=== PATIENT | female | born 1965 ===

== ENCOUNTER 2023-08-31 22:08 | Inpatient (IN) | payer OTHER, SELFPAY ==
[2023-08-31 16:06] VITALS: BP 184/119
[2023-08-31] MEDS: DILAUDID 0.5 MG IV ×2 (17:21→19:27)
[2023-08-31] MEDS: ZOFRAN 4 MG IV ×3 (17:22→20:41)
[2023-08-31 17:30] VITALS: BMI 35.8
[2023-08-31 17:37] LABS: % Basophils 0.4 % (0-2); % Eosinophils 0.3 % (0-6); % Immature Granulocytes 0.5 % (0-0.5); % Lymphocytes 7.8 % (20.5-51.1); % Monocytes 6.1 % (1.7-9.3); % Neutrophils 84.9 % (42.2-75.2); Absolute Basophils 0.1 10^3/uL (0-0.2); Absolute Eosinophils 0.1 10^3/uL (0-0.7); Absolute Immature Granulocytes 0.1 10^3/uL (0-0.05); Absolute Lymphocytes 1.3 10^3/uL (1.2-3.4); Absolute Neutrophils 14.4 10^3/uL (1.4-6.5); Hematocrit 44.1 % (37.0-47.0); Hemoglobin 15.2 g/dL (12.0-16.0); Mean Corp Hgb Conc. 34.5 g/dL (33.0-37.0); Mean Corpuscular Hgb 28.5 pg (27.0-31.0); Mean Corpuscular Volume 82.6 fL (81.0-99.0); Mean Platelet Volume 9.5 fL (7.4-10.4); Nucleated Red Blood Cells % 0 %; Platelet Count 214 10^3/uL (130-400); Red Blood Cell Count 5.34 10^6/uL (4.20-5.40); Red Cell Dist. Width 12.8 % (11.5-14.5)
[2023-08-31 17:40] VITALS: BP 169/80
--- NOTE | 2023-08-31 17:48 | EDRN ---
Lab called and COMP was hemolyzed and will need to be redrawn.
--- NOTE | 2023-08-31 18:12 | EDRN ---
ED PCT Agnes redrew SST tube that was hemolyzed at this time.
--- NOTE | 2023-08-31 18:15 | ED.GENMED ---
History of Present Illness
General
Chief Complaint: Jaw Pain
Source: patient and family (sister)
Time Seen by Provider: 08/31/23 16:52
Nursing documentation reviewed up to this point in time: agreed with
Travel History
Have you had any contact with someone who has COVID-19?: No
Do you have any symptoms of coronavirus? Fever > 100 degrees, chills, cough, shortness of breath, sore throat, loss of taste or smell, muscle aches, or headache?: No
History of Present Illness
History of Present Illness:
The patient is a very pleasant 58-year-old female who presents with severe swelling and pain in her left face, primarily in the area in the front of her left ear and radiating down the left side of her neck. Patient reports that the pain started
about 36 hours ago after opening her mouth and feeling a crack along her left jawline. Patient reports it is extremely painful for her to open up her mouth. She reports her throat is sore along the left side. Her sister reports she has had chills
and a low-grade fever. Patient was evaluated urgent care earlier today and was started on Augmentin. She has taken 1 dose of the antibiotic. She denies any recent dental procedures.
Past History
Past History
ED Past Medical History: HTN
ED Past Surgical History: Other
Social History
Tobacco: Non-smoker
Alcohol: Other
Drug: None
Personal: Other
Living: with family
Employment: Other
Family History
Family History: Other
Review of Systems
Review of Systems
Allergies reviewed?: Yes
All Other Systems: ROS reviewed and negative except as documented in HPI and ROS
Constitutional: Reports fever and chills
EENT: Reports sore throat and other
Respiratory: Reports no symptoms
Cardiac: Reports no symptoms
ABD/GI: Reports no symptoms
: Reports no symptoms
Musculoskeletal: Reports no symptoms
Skin: Reports no symptoms
Neurological: Reports no symptoms
Endocrine: Reports no symptoms
Hematologic/Lymphatic: Reports no symptoms
Psychiatric: Reports no symptoms
Phy Exam
Physical Exam
Physical Exam:
Physical Exam
General: Patient appears very uncomfortable
Neck: Marked swelling and erythema and tenderness of parotid gland area of left face with streaking redness and swelling down left lateral neck
Heart: s1/s2 regular rate and rhythm, no murmur. equal radial pulses.
Lungs: no acute respiratory distress. clear bilaterally
Abdomen: normal bowel sounds. not tender. no CVAT
Neuro: alert and oriented. no focal neurological deficits
Skin: no rash
Psychiatric: well kept. interactive and cooperative
Extremities: no edema. no calf tenderness. negative homans. good distal pulses
Course
Orders/Labs/Results
Orders:
Orders
08/31/23 17:12
HYDROmorphone [Dilaudid] 0.5 mg IV NOW STA
08/31/23 17:13
Ondansetron Injectable [Zofran] 4 mg IV NOW STA
08/31/23 17:14
CT Neck With Iv Contrast Urgent
Comment:
Reason For Exam: L neck and gland pain
08/31/23 17:28
Complete Blood Count/With Diff Urgent
08/31/23 18:08
Comprehensive Metabolic Panel Urgent
08/31/23 19:16
HYDROmorphone [Dilaudid] 0.5 mg IV NOW STA
08/31/23 19:28
Ondansetron Injectable [Zofran] 4 mg IV NOW STA
08/31/23 20:23
Clindamycin Phosphate [Cleocin] 450 mg 0.9% Sodium Chloride [Nss] 50 ml IV NOW
Abnormal Lab Results
08/31/23 08/31/23
17:28 18:08
WBC 17.0 H 10^3/uL
(4.8-10.8)
Abs Immat Gran (auto) 0.1 H 10^3/uL
(0-0.05)
Absolute Neuts (auto) 14.4 H 10^3/uL
(1.4-6.5)
Absolute Monos (auto) 1.0 H 10^3/uL
(0.1-0.6)
Neutrophils % 84.9 H %
(42.2-75.2)
Lymphocytes % 7.8 L %
(20.5-51.1)
Sodium 133 L mmol/L
(135-145)
Chloride 97 L mmol/L
(98-107)
Glucose 117 H mg/dl
(70-99)
08/31/23 17:28
08/31/23 18:08
Vital Signs
Initial and Last Documented VS:
Initial Vital Signs
Temp Pulse Resp BP Pulse Ox
98.8 F 92 16 184/119 97
08/31/23 16:06 08/31/23 16:06 08/31/23 16:06 08/31/23 16:06 08/31/23 16:06
Last Documented Vital Signs
Temp Pulse Resp BP Pulse Ox
99.1 F 96 18 173/73 96
08/31/23 19:35 08/31/23 18:32 08/31/23 18:32 08/31/23 18:32 08/31/23 18:32
MDM/Problems Addressed
Differential Diagnosis Includes:
Peritonsillar abscess, mastoiditis, abscess soft tissue neck
MDM/Problems Addressed:
Patient presents with acute swelling and pain along the left face and neck area
Acute Exacerbation and/or Progression of Chronic Illness:
Patient is acutely hypertensive, likely due to severe pain
Acute Exacerbation and/or Progression of Chronic Illness: HTN
*Radiology
Radiology exam reviewed: radiology read reviewed
*Pulse Oximetry
Patient hypoxic: no
*EKG
Interpreted by ED Provider?: NA
*Hostler Helper Interpretation
Rate: Hostler Helper- N/A
*Critical Care Note
Total Time (30-74mins, 75-104mins- exclusive of procedures): Not Applicable
ED Attending Note
-
Portions of this chart may have been created with voice recognition software.� Occasional wrong word or��sound alike� substitutions may have occurred due to the inherent limitations of voice recognition software.
Discharge Plan
Departure
Patient Disposition: Admit
Date of Disposition: 08/31/23
Time of Disposition: 20:19
Admit to: Med/Surg
Presentation/result/management discussed w/ accepting MD/DO: Hospitalist
Patient with high blood pressure during this ER visit?: Yes
Condition: Good
Covid-19: Not Applicable
Discharge Problem:
Cellulitis of face, Acute parotitis
Referrals:
Betzaida Howell MD [Family Provider] -
Interventions
Interventions:
*Risk Screen - Suicide Last Done: 08/31/23 16:06
*General Assessment Last Done: 08/31/23 16:06
*Neglect/Abuse Screening Last Done: 08/31/23 16:06
ED- Fall Risk Assessment Last Done: 08/31/23 17:30
*ED COVID-19 Vaccine History Last Done: 08/31/23 17:30
ED- Cardiac Assessment Last Done: 08/31/23 17:30
ED-EENT Assessment Last Done: 08/31/23 17:30
Discharge Date and Time
Print Language: VIETNAMESE
[2023-08-31 18:32] VITALS: BP 173/73
[2023-08-31 18:34] LABS: ALT (SGPT) 19 U/L (0-35); AST (SGOT) 26 U/L (14-36); Albumin 4.5 g/dl (3.5-5.0); Alkaline Phosphatase 67 U/L (38-126); Blood Urea Nitrogen 15 mg/dl (7-17); Calcium 9.7 mg/dl (8.4-10.2); Carbon Dioxide 30 mmol/L (22-30); Chloride 97 mmol/L (98-107); Estimated Creatinine Clearance 118 ml/min; Glucose 117 mg/dl (70-99); Potassium 4.1 mmol/L (3.5-5.1); Sodium 133 mmol/L (135-145); Total Bilirubin 1.3 mg/dl (0.2-1.3); Total Protein 7.4 g/dl (6.3-8.2); eGFR > 60.00
--- NOTE | 2023-08-31 20:38 | HPS.HSE ---
Family Physician
-
Family Physician: Betzaida Howell
Chief Complaint
-
Left-sided facial swelling, chills
History of Present Illness
58-year-old female complaining of pain to left preauricular face that started 36 hours ago then started to swell and expand into her left anterior neck.. She also had chills with a temp of 100.5 today at 3 PM. She does report she uses a nightguard
for TMJ pain. She was evaluated at urgent care earlier today started on Augmentin of which she has taken 1 dose in addition to naproxen and her metoprolol 25 mg ER. She has past medical history of hypertension, TMJ pain
Medical History
Past Medical History
Past Medical History: Reports HTN and Other (TMJ pain wears nightguard)
Past Surgical History: Reports Tonsilectomy
Social History
Tobacco: Non-smoker
Alcohol: Occasional
Drug: None
Personal: Single
Living: With Family (With jessica Alonzo)
Employment: Retired
Family History
Family History: Other (Mother liver failure, history celiac disease, father CHF)
Allergies / Home Medications
Allergies reflects when Allergies were last updated in [email or web address].
Home Medications with original date entered in [email or web address]
Allergy/Medication List:
Allergies
Allergy/AdvReac Type Severity Reaction Status Date / Time
No Known Allergies Allergy Unverified 08/31/23 18:35
Home Medications
amoxicillin 875 mg-potassium clavulanate 125 mg tablet 1 tab PO BID 08/31/23
metoprolol succinate 25 mg tablet,extended release 24 hr 25 mg PO DAILY 08/31/23
naproxen 500 mg tablet 500 mg PO BID 08/31/23
Review of Systems
-
History Source: Patient and Family (Sister lazarus )
A 12 point ROS was completed and negative except as noted: Yes
Constitutional: Reports Fever and Chills
EENT: Reports Other (Left parotid swelling extending to mandible and left anterior neck, trismus); Denies Sore Throat or Runny Nose
Respiratory: Denies Cough or Trouble Breathing
Cardiac: Denies Chest Pain, Diaphoresis, Palpitations or Syncope
Abdomen/GI: Denies Abdominal Pain, Nausea, Vomiting, Diarrhea, Constipated or Bloody Stools
: Denies Dysuria, Frequency, Flank Pain, Incontinence, Difficulty Voiding or Urgency
Musculoskeletal: Denies Joint Pain or Edema
Skin: Reports Other (Flushed face and upper neck); Denies Itching or Rash
Neurological: Denies Dizzy, Headache or Weakness
Endocrine: Reports No Symptoms
Hematologic/Lymphatic: Reports No Symptoms
Psych: Reports Calm
Physical Exam
Vital Signs
Vital Signs
Temp Pulse Resp BP Pulse Ox
99.1 F 96 18 173/73 96
08/31/23 19:35 08/31/23 18:32 08/31/23 18:32 08/31/23 18:32 08/31/23 18:32
Physical Exam
General: Pain, Fever, Chills and Obese
HEENT: NormoCephalic, Anicteric, Moist mucous membranes, PERRLA, Stuckey Conjunctivae, No Ptosis and Other (Left parotid swelling extending to mandible and left anterior neck, trismus is able to open mouth slightly, moist mucous membranes, no dental
decay no tooth breakdown)
Respiratory: Clear; No Wheezes, Rales or Rhonchi
Cardiac: S1/S2 and Regular Rhythm; No Murmur, Rub, Gallop or Peripheral Edema
Breast: Deferred by me
GI: Soft, Non Tender, Non Distended, Normal Bowel Sounds and No Hepatosplenomegaly
Rectal: Deferred by Provider
Genito-urinary: Deferred by me
Musculoskeletal: No Clubbing, No Cyanosis and No Edema
Skin: Warm and Dry; No Rash or Jaundice
Neuro: AO x 3, No Motor Deficits, Nonfocal/grossly intact, Cranial Nerves Intact and No Sensory Deficits; No Slurred Speech, Facial Droop or Tremors
Psych: Calm
Laboratory Results
-
08/31/23 17:28
08/31/23 18:08
Laboratory Results
Total Bilirubin 1.3 mg/dl (0.2-1.3) 08/31/23 18:08
AST 26 U/L (14-36) 08/31/23 18:08
ALT 19 U/L (0-35) 08/31/23 18:08
Alkaline Phosphatase 67 U/L (38-126) 08/31/23 18:08
Impression/Plan
-
Impression/plan:
Admit to MedSurg
#Sepsis secondary to left facial Parotitis
#Hx Nightguard use
WBC 17 with left shift, HR 96, 99.1 F, reports vaccinated against mmr last titer 2 years ago
Patient took 1 dose of [id number]
-Blood cultures x 2
-IV NSS
-ice
-IV Unasyn 3gm q6h
-Tylenol as needed fever, IV Dilaudid, IV Zofran as needed
CT neck with IV contrast: Left-sided parotitis.. No abscess formation
Moderate bilateral cervical lymphadenopathy left greater than right
#HTN�benign
173/73
- cont metoprolol 25 mg xr
#Obesity due to excess calorie consumption�BMI 35.8 kg
Weight loss recommended when able to resume eating
DVT prophylaxis
SCDs
Full code
[2023-08-31] MEDS: DILAUDID 1 MG IV ×2 (20:42→23:41)
--- NOTE | 2023-08-31 21:25 | W.PN.UPDATE ---
Update Note
Progress Note Update
This is an addendum to the H&P written by ABEBA Soni on 08/31/2023.
Patient seen and examined apparently with RADIOLOGICAL TECHNICIAN.� 58-year-old female with past medical history of hypertension, obesity, TMJ presenting with left preauricular swelling and pain that started 36 hours ago and expanding.� She had chills and fever today.�
Denies any discharge from the mouth.� Denies any history of dental problems, or rash.� She does wear nightguard for TMJ.� CT scan of the neck shows left-sided parotitis without evidence of abscess.� Sepsis secondary to parotitis likely due to dry
mouth.� Check blood cultures, IV fluids, Unasyn.
[2023-08-31] MEDS: UNASYN IV (21:53)
[2023-08-31 22:04] VITALS: BP 138/66
[2023-08-31] MEDS: NSS 1000 IV (23:45)
[2023-08-31 23:47] VITALS: BP 136/63
[2023-08-31 23:48] VITALS: BP 136/63
[2023-09-01] VITALS (9 sets, daily range): BP systolic 131–155; BP diastolic 73–86
[2023-09-01] MEDS: DILAUDID 1 MG IV ×3 (03:13→09:17)
[2023-09-01] MEDS: UNASYN IV ×4 (04:48→21:39)
[2023-09-01 06:38] LABS: % Basophils 0.3 % (0-2); % Eosinophils 0.2 % (0-6); % Immature Granulocytes 0.6 % (0-0.5); % Lymphocytes 11.5 % (20.5-51.1); % Monocytes 8.3 % (1.7-9.3); % Neutrophils 79.1 % (42.2-75.2); Absolute Basophils 0.1 10^3/uL (0-0.2); Absolute Immature Granulocytes 0.1 10^3/uL (0-0.05); Absolute Monocytes 1.5 10^3/uL (0.1-0.6); Hematocrit 41.2 % (37.0-47.0); Hemoglobin 14.1 g/dL (12.0-16.0); Mean Corp Hgb Conc. 34.2 g/dL (33.0-37.0); Mean Corpuscular Hgb 28.9 pg (27.0-31.0); Mean Corpuscular Volume 84.4 fL (81.0-99.0); Mean Platelet Volume 9.6 fL (7.4-10.4); Nucleated Red Blood Cells % 0 %; Platelet Count 181 10^3/uL (130-400); Red Blood Cell Count 4.88 10^6/uL (4.20-5.40); Red Cell Dist. Width 12.8 % (11.5-14.5); White Blood Cell Count 17.7 10^3/uL (4.8-10.8)
[2023-09-01 06:56] LABS: ALT (SGPT) 17 U/L (0-35); AST (SGOT) 20 U/L (14-36); Alkaline Phosphatase 68 U/L (38-126); Blood Urea Nitrogen 11 mg/dl (7-17); Calcium 9.3 mg/dl (8.4-10.2); Carbon Dioxide 28 mmol/L (22-30); Chloride 103 mmol/L (98-107); Estimated Creatinine Clearance > 125 ml/min; Glucose 118 mg/dl (70-99); Potassium 3.9 mmol/L (3.5-5.1); Sodium 136 mmol/L (135-145); Total Bilirubin 1.2 mg/dl (0.2-1.3); Total Protein 6.8 g/dl (6.3-8.2); eGFR > 60.00
[2023-09-01] MEDS: TYLENOL 650 MG PO ×3 (08:43→20:14)
[2023-09-01] MEDS: TOPROL XL 25 MG PO (08:44)
[2023-09-01] MEDS: DECADRON 10 MG IV (09:10)
--- NOTE | 2023-09-01 11:42 | PTOTSP ---
Pt is indep in room for ADLs/functional mobility. No skilled OT services warranted. Will sign off.
[2023-09-01] MEDS: NSS 1000 IV ×2 (11:59→21:39)
--- NOTE | 2023-09-01 13:10 | W.PN.HOSP.TC ---
Today's Communication/Plan
-
All discussed with the patient
Discussed with the nurse
Assessment / Plan
Assessment / Plan
Physical exam:
General: Awake, alert and oriented x3, not in distress and holds appropriate conversation.
HEENT: Left-sided facial swelling and tenderness some redness preauricular region, and mild swelling in the left side of the neck with no airway compromise or respiratory distress, no active discharge, ecchymosis or bruising, moist lips, tongue and
mucous membrane.
Eyes: No discharge or red conjunctiva, no nystagmus, pupils are reactive and equal
Neck:Supple, no JVD no bruit no goiter.
Respiratory: Normal AP contour and diameter, normal chest wall movement, normal respiratory effort, no respiratory distress,
Lungs: Good air entry bilaterally, no wheezing or rhonchi, no rales or crackles
Heart: S1, S2 regular, normal rate, no added sound.
Gastrointestinal: Positive bowel sounds, soft, nontender, no guarding or rigidity or organomegaly
Musculoskeletal: , no chest wall abnormality or tenderness. All joints and extremities have good range of motion, no muscle tenderness or any joint swelling or tenderness.
Extremities: No pitting edema, good peripheral pulses, good range of motion
Skin: Warm and dry, no ulceration, normal color.
Neurological: Awake, alert and oriented x3, no facial droop, normal mentation, moves extremities
Psychiatric: Normal mood, normal thought and judgment, normal affect,
Assessment and plan:
#Sepsis secondary to left facial Parotitis
#Hx Nightguard use and a dry mouth
WBC 17 with left shift, HR 96, 99.1 F, reports vaccinated against mmr last titer 2 years ago
Patient took 1 dose of Augmentin 875 mg
-Blood cultures x 2, results still pending
-IV NSS
-ice pack
-IV Unasyn 3gm q6h
-Tylenol as needed fever, IV Dilaudid, IV Zofran as needed
-Since swelling little worse according to the patient Decadron 10 mg right now then 60 mg every 6 hour and reassess accordingly.
Close monitoring of the airway and vital sign.
CT neck with IV contrast: Left-sided parotitis.. No abscess formation
Moderate bilateral cervical lymphadenopathy left greater than right
#HTN�benign
Pressure initially was high normal at 150s over 80s.
Continue to monitor
- cont metoprolol 25 mg xr
#Obesity due to excess calorie consumption�BMI 35.8 kg
Weight loss recommended when able to resume eating
DVT prophylaxis
Add Lovenox subcu
Full code
Anticipated Discharge: > 48 hours
Subjective/Interval History
-
Date of Service: September 01, 2023
General exam area, awake, alert oriented x 3, complaining of moderately severe pain in the left side of the face with swelling and swelling of the left side of the face is worse and now trending down to 10 neck, she felt her throat swelling about
breathing is normal and maintaining normal saturation on room air not look in distress. Afebrile. No nausea or vomiting or any fever or chills or any weakness or numbness in extremities.
CT face showed left parotitis.
Objective Data
-
Labs:
Laboratory Results
09/01/23
06:07
WBC 17.7 H
Hgb 14.1
Hct 41.2
Plt Count 181
Sodium 136
Potassium 3.9
Chloride 103
Carbon Dioxide 28
BUN 11
Creatinine 0.6
Glucose 118 H
Calcium 9.3
Total Bilirubin 1.2
AST 20
ALT 17
Alkaline Phosphatase 68
Vital Signs:
Vital Signs
Temp Pulse Resp BP Pulse Ox
98.2 F 79 15 154/82 96
09/01/23 08:39 09/01/23 08:39 09/01/23 08:39 09/01/23 08:39 09/01/23 08:39
I&O
08/31/23 09/01/23 09/02/23
07:59 07:59 07:59
Intake Total 520 / 520
Balance 520 / 520
Review of Systems
-
All other systems: Reviewed and negative
[2023-09-01] MEDS: DECADRON 6 MG IV ×2 (15:25→21:39)
[2023-09-01] MEDS: LOVENOX 40 MG SC (17:45)
[2023-09-02] MEDS: UNASYN IV ×4 (03:40→21:00)
[2023-09-02] MEDS: DECADRON 6 MG IV ×4 (03:40→20:59)
[2023-09-02 06:10] LABS: % Basophils 0.2 % (0-2); % Immature Granulocytes 1.1 % (0-0.5); % Lymphocytes 5.4 % (20.5-51.1); % Monocytes 2.7 % (1.7-9.3); % Neutrophils 90.6 % (42.2-75.2); Absolute Immature Granulocytes 0.2 10^3/uL (0-0.05); Absolute Monocytes 0.5 10^3/uL (0.1-0.6); Absolute Neutrophils 16.9 10^3/uL (1.4-6.5); Hematocrit 40.2 % (37.0-47.0); Hemoglobin 13.3 g/dL (12.0-16.0); Mean Corp Hgb Conc. 33.1 g/dL (33.0-37.0); Mean Corpuscular Hgb 28.2 pg (27.0-31.0); Mean Corpuscular Volume 85.4 fL (81.0-99.0); Mean Platelet Volume 10.2 fL (7.4-10.4); Nucleated Red Blood Cells % 0 %; Platelet Count 193 10^3/uL (130-400); Red Blood Cell Count 4.71 10^6/uL (4.20-5.40); Red Cell Dist. Width 12.4 % (11.5-14.5); White Blood Cell Count 18.7 10^3/uL (4.8-10.8)
[2023-09-02] MEDS: NSS 1000 IV (08:21)
[2023-09-02 08:26] VITALS: BP 143/75
[2023-09-02] MEDS: TOPROL XL 25 MG PO (08:28)
[2023-09-02 08:33] VITALS: BMI 36.6
--- NOTE | 2023-09-02 11:16 | CM ---
CM met with patient and sister in room. Patient confirmed demographics. Patient lives independently with sister. No history of VN, SNF or DME. Patient is active with her PCP. Patient uses [facility] for medication services.
PLAN: Home no needs.
--- NOTE | 2023-09-02 11:55 | W.PN.HOSP.TC ---
Today's Communication/Plan
-
All discussed with the patient in detail
Assessment / Plan
Assessment / Plan
Physical exam:
General: Awake, alert and oriented x3, not in distress and holds appropriate conversation.
HEENT: Left-sided facial swelling and tenderness some redness preauricular region, and mild swelling in the left side of the neck with no airway compromise or respiratory distress, no active discharge, ecchymosis or bruising, moist lips, tongue and
mucous membrane.
Eyes: No discharge or red conjunctiva, no nystagmus, pupils are reactive and equal
Neck:tender swelling of L side of neck, better than yesterday, Supple, no JVD no bruit no goiter.
Respiratory: Normal AP contour and diameter, normal chest wall movement, normal respiratory effort, no respiratory distress,
Lungs: Good air entry bilaterally, no wheezing or rhonchi, no rales or crackles
Heart: S1, S2 regular, normal rate, no added sound.
Gastrointestinal: Positive bowel sounds, soft, nontender, no guarding or rigidity or organomegaly
Musculoskeletal: , no chest wall abnormality or tenderness. All joints and extremities have good range of motion, no muscle tenderness or any joint swelling or tenderness.
Extremities: No pitting edema, good peripheral pulses, good range of motion
Skin: Warm and dry, no ulceration, normal color.
Assessment and plan:
#Sepsis secondary to left facial Parotitis, improving,
#Hx Nightguard use and a dry mouth
WBC little higher likely secondary to infection and steroid, with left shift, HR 96, 99.1 F, reports vaccinated against mmr last titer 2 years ago
Patient took 1 dose of Augmentin 875 mg
-Blood cultures x 2, results still pending
-IV NSS
-ice pack
-IV Unasyn 3gm q6h
-Tylenol as needed fever, IV Dilaudid, IV Zofran as needed
-Since swelling little worse according to the patient Decadron 10 mg right now then 60 mg every 6 hour and reassess accordingly.
-Close monitoring of the airway and vital sign.
Is not ready for discharge still of moderate amount of the painful erythematous swelling of the left side of the face and neck require more IV antibiotic and steroid
CT neck with IV contrast: Left-sided parotitis.. No abscess formation
Moderate bilateral cervical lymphadenopathy left greater than right
#HTN�benign
Pressure initially was high normal at 150s over 80s.
Continue to monitor
- cont metoprolol 25 mg xr
#Obesity due to excess calorie consumption�BMI 35.8 kg
Weight loss recommended when able to resume eating
DVT prophylaxis
Add Lovenox subcu
Full code
Anticipated Discharge: 24 - 48 hours
Subjective/Interval History
-
Date of Service: September 02, 2023
Seen and examined, awake and alert, still of moderate painful erythematous swelling of the left side face on the neck but better than before, better opening of her mouth, tolerating liquid diet, no fever or chills or nausea or vomiting. No
headache. No facial ulceration,
Objective Data
-
Labs:
Laboratory Results
09/02/23
05:43
WBC 18.7 H
Hgb 13.3
Hct 40.2
Plt Count 193
Vital Signs:
Vital Signs
Temp Pulse Resp BP Pulse Ox
98.2 F 78 18 143/75 93
09/01/23 22:46 09/02/23 08:28 09/02/23 08:26 09/02/23 08:28 09/02/23 08:26
I&O
09/01/23 09/02/23 09/03/23
07:59 07:59 07:59
Intake Total 520 / 520 1700 / 1700
Output Total 3 / 3
Balance 520 / 520 1697 / 1697
Review of Systems
-
All other systems: Reviewed and negative
[2023-09-02 16:38] VITALS: BP 174/92
[2023-09-02 16:54] VITALS: BP 169/87
--- NOTE | 2023-09-02 17:00 | PTCARENOTE ---
Received pt from ED.Pt awake, alert and oriented x3. Pt has no c/o pain at this time. Left facial swelling with lump noted. Cheeks flushed with redness extending down neck to chest with warmth noted. Pt said it has significantly improved since
admission. Pt pox stable 97% on RA. No c/o of SOB. Pt oriented to room, call montoya within reach, plan of care ongoing.
[2023-09-02] MEDS: LOVENOX 40 MG SC (17:36)
[2023-09-02 18:20] VITALS: BP 171/90
[2023-09-02] MEDS: TYLENOL 650 MG PO (18:43)
[2023-09-02] MEDS: APRESOLINE 10 MG IV (18:43)
--- NOTE | 2023-09-02 19:15 | PTCARENOTE ---
Pt b/p elevated 170s systolic with c/o headache. Spoke with MD orders for IV Hydralazine, given per orders, Pt also given Tylenol for headache. after about a half hour pt already said she is feeling better. Call montoya within reach, plan of care
ongoing.
[2023-09-02 23:00] VITALS: BP 151/85
[2023-09-03] MEDS: DECADRON 6 MG IV ×2 (03:10→09:10)
[2023-09-03] MEDS: UNASYN IV ×2 (03:11→09:26)
[2023-09-03 08:00] VITALS: BP 161/90
[2023-09-03] MEDS: TOPROL XL 25 MG PO (09:09)
[2023-09-03 11:30] VITALS: BP 165/85
--- NOTE | 2023-09-03 14:08 | CM ---
Patient seen bedside, inquiring if she is being discharged today, patient would really like to discharge home. TT sent to Hospitalist. CM will continue to follow for discharge planning needs.
Plan; home no needs.
--- NOTE | 2023-09-03 14:55 | W.PN.HOSP.TC ---
Addendum entered and electronically signed by Bari Prieto MD 09/03/23 15:04:
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
Original Note:
Today's Communication/Plan
-
DC
Assessment / Plan
Assessment / Plan
Assessment and plan:
#Sepsis secondary to left facial Parotitis-nonsuppurative
#Hx Nightguard use and a dry mouth
- improving,
WBC little higher likely secondary steroid than infection with significant improvement in pain and swelling. Afebrile.
-Blood cultures x 2 neg
-on IV Unasyn 3gm q6h
-No further oral steroids.
-Changed to oral Augmentin to continue for another week. Patient educated about signs of recurrence of infection-recurrence of pain, swelling or fevers in which case advised to come back to the ER.
#HTN�benign
Pressure on higher side but greatly controlled per pt at home
- cont metoprolol 25 mg xr; advised to check at home off of steroids
#Obesity due to excess calorie consumption�BMI 35.8 kg
Weight loss recommended when able to resume eating
DVT prophylaxis
Add Lovenox subcu
Full code
Medically stable for discharge.
Anticipated Discharge: Today
Subjective/Interval History
-
Date of Service: September 03, 2023
Much improved swelling in the left angle of the neck. The swelling was not all in the parotid gland area it was In the back of the ear and as well as lower neck and all is improving.
Pain is significantly improved and not requiring any IV medication.
No fever or chills.
No parotid gland issues in the past.
Good dental hygiene.
Had some issues with dry mouth but never issue.
She wears mouthguard in the night every day. She had it refitted. It keeps hitting in the back of the jaw and sometimes gives her jaw pain.
Objective Data
-
Vital Signs:
Vital Signs
Temp Pulse Resp BP Pulse Ox
98.6 F 68 18 165/85 96
09/03/23 11:30 09/03/23 11:30 09/03/23 11:30 09/03/23 11:30 09/03/23 11:30
I&O
09/02/23 09/03/23 09/04/23
06:59 06:59 06:59
Intake Total 3619 / 0
Output Total
Balance - / -3 3619
Review of Systems
-
Constitutional: Denies Fever or Chills
Respiratory: Denies Trouble Breathing
Cardiac: Denies Chest Pain
Abdomen/GI: Denies Diarrhea
Musculoskeletal: Denies Joint Pain
Neuro: Denies Dizzy
Physical Exam
-
General: No Apparent Distress
HEENT: Moist Mucous Membranes and Other (Left parotid gland prominent noted -not particularly tender today;stensen duct area palpated and no stone or pain elicited.)
Respiratory: Clear to Auscultation
Cardiac: Regular Rhythm and S1/S2
GI: Soft
Neuro: AO x 3
Psych: Calm
--- NOTE | 2023-09-03 15:03 | W.DS.TRANS ---
DC Summary - Granulator Tender
-
Discharge Instructions:
Discharge Diagnosis/Procedures Left parotitis concerned sec to scientific specialist
Diet Regular
Activity As tolerated
Driving Restrictions As prior to admission
Bathing Restrictions None
Instructions:
Stand-Alone Forms:
Changes to Home Medications: No
Discharge Medications:
DC Medications w/original date entered in [email or web address]
metoprolol succinate 25 mg tablet,extended release 24 hr 25 mg PO DAILY 08/31/23
naproxen 500 mg tablet 500 mg PO BID 08/31/23
acetaminophen 325 mg tablet 650 mg (2 x 325 mg) PO Q4HPRN PRN mild pain/PIERCE/temp> 100.4F #1 tab 09/03/23
amoxicillin 875 mg-potassium clavulanate 125 mg tablet 1 tab PO BID #0 tabs 09/03/23
Home Medication Changes
Pending Results: No
[2023-09-03 15:05] VITALS: BP 158/78
== END 2023-09-03 17:12 | disposition home or self-care (01) | DRG 872 ==
LOC: 4 EAST ACU 22:08
PROVIDERS: Clinical Nurse Specialist Family Health; Internal Medicine; ADMITTING PHYSICIAN Hospitalist; ATTENDING PHYSICIAN Internal Medicine; EMERGENCY PHYSICIAN Emergency Medicine; FAMILY PHYSICIAN Family Medicine
DX: A41.9 Sepsis, unspecified organism (principal); L03.211 Cellulitis of face; I10 Essential (primary) hypertension; K11.21 Acute sialoadenitis; M26.629 Arthralgia of temporomandibular joint, unspecified side; R59.0 Localized enlarged lymph nodes; E66.09 Other obesity due to excess calories; Z68.36 Body mass index [BMI] 36.0-36.9, adult
CPT/HCPCS: 70491; 80053; 85025; 87040; 96374; 96375; 96376; 99285; Q9967